=== PATIENT | female | born 1965 | race Hispanic/Latino ===

== ENCOUNTER → 2018-09-05 | Outpatient (CLI) | payer OTHER ==
--- NOTE | 2018-09-05 17:27 | Diagnostic Imaging Report ---
Exam: Bone mineral density study. History: MENOPAUSE Comparison: None available. Discussion: Evaluation of the left hip and lumbar spine was performed. The study is technically adequate. The patient's fracture risk is compared to an age-matched control. The patient denies prior surgery/fracture of the spine, hips or forearm. Left hip femoral neck bone mineral density: 0.7 g/cm2, T-score is -1.3, Z-score is -0.4. Left hip total bone mineral density: 0.8 g/cm2, T-score is -1, Z-score is -0.3. Lumbar spine total bone mineral density: 0.9 g/cm2, T-score is -1.7, Z-score is -0.7. Impression: 1. Bone mineralization by WHO Classification is low bone mass/osteopenia, the fracture risk is increased. 2. The FRAX 10-year probability of major osteoporotic fracture is 4.9% and hip fracture is 0.3%. These probabilities assume the patient is untreated. Signed by: Dr. Javier Martines D.O., M.M.M. on 09/05/2018 5:24 PM
== END ==
LOC: MAMMO 14:24
PROVIDERS: ATTEND Obstetrics & Gynecology
DX: Z12.31 Encounter for screening mammogram for malignant neoplasm of breast (principal); Z78.0 Asymptomatic menopausal state
CPT/HCPCS: 77067; 77080